=== PATIENT | male | born 1945 | race Caucasian/White ===

== ENCOUNTER 2022-02-27 11:40 | Emergency (ER) | payer MEDICARE ==
[~2022-02-27] VITALS: Ht 182.9 cm; Wt 95.3 kg
[2022-02-27] MEDS ORDERED: BEBTELOVIMAB 175 MG INJ IV ONE ×2 (12:15→12:55)
[2022-02-27] MEDS ORDERED: FLONASE ALLERG9.9 ML INH (13:28)
[2022-02-27] MEDS ORDERED: MUCINEX DM ER1 EACH PO (13:28)
[2022-02-27] MEDS ORDERED: BENZONATATE100 MG PO (13:28)
[2022-02-27 13:37] VITALS: BP 133/65
== END 2022-02-27 13:37 | disposition home or self-care (01) ==
LOC: FSED 12:00
DX: R50.9 Fever, unspecified (principal); R05.9 Cough, unspecified; U07.1 COVID-19
CPT/HCPCS: 99283